=== PATIENT | male | born 1940 | race Caucasian/White ===

== ENCOUNTER 2016-12-24 15:09 | Observation (INO) | payer MEDICARE, BC ==
[~2016-12-24] VITALS: Ht 182.9 cm; Wt 83.6 kg
[2016-12-24] MEDS ORDERED: SOD CHLORIDE 0.9% 1,000 ML IV STA (15:34)
[2016-12-24 15:45] LABS: ADD SCAN DIFF NO
[2016-12-24 15:47] LABS: BASOPHILS % 0.6 % (0.0-2.0); EOSINOPHILS # 0.3 10^3/ul (0.0-0.5); HEMATOCRIT 40.7 % (42.0-52.0); LYMPHOCYTES # 1.7 10^3/ul (0.8-2.9); LYMPHOCYTES % 23.7 % (15.0-51.0); MEAN CORPUSCULAR HEMOGLOBIN 28.3 pg (29.0-33.0); MEAN CORPUSCULAR HGB CONC 31.9 g/dl (32.0-37.0); MEAN CORPUSCULAR VOLUME 88.7 fl (82.0-101.0); MEAN PLATELET VOLUME 10.7 fl (7.4-10.4); MONOCYTE # 0.7 10^3/ul (0.3-0.9); MONOCYTES % 9.9 % (0.0-11.0); NEUTROPHIL # 4.3 10^3/ul (1.6-7.5); NEUTROPHILS % 61.7 % (39.0-77.0); PLATELET COUNT 175 10^3/UL (140-415); RED BLOOD COUNT 4.59 10^6/ul (4.70-6.10); RED CELL DISTRIBUTION WIDTH 13.9 % (11.5-14.5)
[2016-12-24 15:58] LABS: PROTIME 13.2 Sec (12.2-14.2)
[2016-12-24 15:59] LABS: PARTIAL THROMBOPLASTIN TIME 29.7 Sec (25.0-35.0)
[2016-12-24 16:02] LABS: ALBUMIN 4.2 g/dl (3.3-4.9)
[2016-12-24 16:03] LABS: CHLORIDE 107 mmol/L (97-110); SODIUM 144 mmol/L (135-144)
[2016-12-24 16:05] LABS: ANION GAP 15 (8-16); BILIRUBIN,INDIRECT 0.3 mg/dl (0-1.1); BILIRUBIN,TOTAL 0.3 mg/dl (0.2-1.3); CARBON DIOXIDE 26 mmol/L (21-31); CREATININE 1.25 mg/dl (0.61-1.24)
[2016-12-24 16:06] LABS: ALANINE AMINOTRANSFERASE 39 IU/L (13-69); ALKALINE PHOSPHATASE 136 IU/L (42-121); ASPARTATE AMINO TRANSFERASE 44 IU/L (15-46); BLOOD UREA NITROGEN 26 mg/dl (7-20); CALCIUM 9.9 mg/dl (8.4-10.2); CREATINE KINASE 356 IU/L (23-200); GLUCOSE 97 mg/dl (70-220); TOTAL PROTEIN 7.2 g/dl (6.1-8.1)
[2016-12-24 16:17] LABS: TROPONIN-I < 0.012 ng/ml (0.00-0.12)
--- NOTE | 2016-12-24 16:42 | RADRPT ---
PROCEDURE: CT Head without. CLINICAL INDICATION: Syncope, possible stroke. TECHNIQUE: The study was performed utilizing a multi-slice, multidetector CT scanner. Direct spira l 1 mm axial sections were obtained through the head without the use of intravenous contrast materia l. 1 or more of the following dose reduction techniques were utilized: Automated exposure control, adjustment of the mA and/or kV according to patient's size, iterative reconstruction technique. Co guerda and sagittal reformations were obtained. The images were reviewed on a PACS workstation. RADIATION DOSE: CTDIvol: 44.8 mGyDLP: 720.2 mGy-cm COMPARISON: No prior studies are available for comparison. FINDINGS: There is no intracranial hemorrhage, extra-axial fluid collection, mass lesion, midline shift or hyd rocephalus. There is mild prominence of the cerebral sulci, lateral and third ventricles. There ar e mild to moderate periventricular and subcortical white matter hypodensities, likely related to chr onic microangiopathic changes. There is a well-circumscribed area of encephalomalacia involving the lateral left frontal lobe/left frontal operculum consistent with remote prior infarct. There is as sociated moderate gliosis in the underlying white matter. There is ex vacuo enlargement of the fron naila horn of the left lateral ventricle. There is a wedge-shaped hypodensity involving the left occi pital lobe (axial series image 18), age indeterminate. The right cerebral hemisphere is unremarkabl e. The brainstem and cerebellum are normal in appearance. The basal cisterns are patent. The midl ine structures are intact. The orbits, calvarium and extracranial soft tissues are normal in appearance. The visualized paranasal sinuses, mastoid air cells and middle ear cavities are normally aerated. IMPRESSION: 1. Wedge-shaped hypodensity involving the left occipital lobe consistent with infarct, age indeterm inate. MRI may be helpful to evaluate for possible acute infarct. 2. Remote infarct involving the lateral left frontal lobe/left frontal operculum associated moderat e gliosis in the underlying white matter. 3. No intracranial hemorrhage, extra-axial fluid collection, mass lesion or hydrocephalous. The above findings were discussed with Patient's physician Kesha Hernandez by telephone on 12/24 4:41:52 PM. RPTAT: HGAS .Dakota Emanuel MD, MD Date Time Electronically viewed and signed by .Dakota Emanuel MD, MD on 12/24/2016 16:41 .S/
--- NOTE | 2016-12-24 16:46 | RADRPT ---
PROCEDURE: XR Chest. CLINICAL INDICATION: Possible stroke. TECHNIQUE: Portable AP upright view of the chest was obtained. COMPARISON: None available. FINDINGS: The cardiomediastinal silhouette is within normal limits. Left lower lobe infiltrate cannot exclude pneumonia versus atelectasis, the right lung is clear. Obscuring of the left hemidiaphragm cannot exclude a small pleural effusion. The right costophrenic angle is not included on the submitted exp osure. There is no evidence of pulmonary vascular congestion. No pneumothorax is seen. Degenerati ve spondylosis of the thoracic spine is identified without evidence of acute osseous abnormality. RPTAT:HJJR IMPRESSION: 1. Left lower lobe opacity unable to exclude pneumonia with parapneumonic effusion. Correlation wit h fever and cough is suggested. 2. Thoracic spondylosis. Physician Martha Date Time Electronically viewed and signed by Physician Martha on 12/24/2016 16:46 /
[2016-12-24 16:55] LABS: ADD UMIC YES; URINE BILIRUBIN (Dip) NEGATIVE (NEGATIVE); URINE BLOOD (Dip) NEGATIVE (NEGATIVE); URINE COLOR LT. YELLOW (YELLOW); URINE GLUCOSE (Dip) NEGATIVE (NEGATIVE); URINE KETONES (Dip) NEGATIVE (NEGATIVE); URINE LEUKOCYTE ESTERASE (Dip) TRACE (NEGATIVE); URINE NITRITE (Dip) NEGATIVE (NEGATIVE); URINE TOTAL PROTEIN (Dip) NEGATIVE (NEGATIVE); URINE UROBILINOGEN (Dip) 0.2 E.U./dL (0.1-1.0)
[2016-12-24] MEDS ORDERED: IOHEXOL 100 ML ONE (16:58)
[2016-12-24] MEDS ORDERED: SOD CHLORIDE 0.9% 100 ML ONE (16:58)
[2016-12-24 17:06] LABS: BACTERIA,URINE FEW; MUCUS,URINE FEW; URINE RBCS 0-2 /HPF (0)
[2016-12-24 17:22] LABS: BARBITURATES Negative (NEGATIVE); BENZODIAZEPINES Negative (NEGATIVE); CANNABINOIDS Negative (NEGATIVE); COCAINE Negative (NEGATIVE); OPIATES Negative (NEGATIVE)
[2016-12-24] MEDS ORDERED: ROSU40TA35 PO (17:41)
[2016-12-24] MEDS ORDERED: DUTA1CPM PO (17:42)
[2016-12-24] MEDS ORDERED: EZET10TA3 PO (17:42)
[2016-12-24] MEDS ORDERED: CLOP75TA27 PO (17:42)
[2016-12-24] MEDS ORDERED: AMIT100T2 PO (17:44)
[2016-12-24] MEDS ORDERED: ASPI325T32 PO (17:45)
[2016-12-24] MEDS ORDERED: GABA300C16 PO (17:45)
--- NOTE | 2016-12-24 17:55 | RADRPT ---
PROCEDURE: CTA head and neck CLINICAL INDICATION: 76-year-old male with left occipital lobe infarct of indeterminate age. Left frontal lobe and left frontal operculum encephalomalacia. TECHNIQUE: Thin section axial, coronal and sagittal images were performed through the neck and bra in following injection of 85 cc of Omnipaque 350. One or more of the following dose reduction techniques were used: - Automated exposure control. - Adjustment of the mA and/or kV according to patient size. Use of iterative reconstruction technique. Radiation dose: CTDI: 19.8 and DLP: 755 COMPARISON: CT scan of the brain without contrast 12/24/2016. FINDINGS: CTA NECK: There are metal clips in the aorticopulmonary window related to prior surgery. The aort ic arch is normal. Innominate artery, right and left subclavian arteries are normal. There is a dominant normal left vertebral artery. There is a nondominant right vertebral artery. There is a high-grade stenosis of the right vertebral artery at the level of the right C3-4 foramen transversarium. The right common carotid artery is normal. The internal and external branches of the cervical porti on of the right common carotid artery are normal. There are vascular calcifications in the left carotid bulb. Remaining portions of the left common c arotid artery are normal. CT angio brain: The basilar artery, posterior inferior cerebellar arteries, anterior inferior cerebellar arteries an d superior cerebellar arteries are unremarkable. There is mild narrowing of the proximal portion of the left posterior cerebral artery. The right posterior cerebral artery is unremarkable. The basilar artery is patent and unremarkable. No aneurysm or AV malformations identified. The cavernous and supracavernous portions of the internal carotid arteries are patent. The anterior communicating artery and anterior cerebral arteries are patent. There is diminished blood flow into the M2 branches of the left middle cerebral artery with areas of occlusion and stenosis. There is encephalomalacia of the left frontal lobe and left frontal opercu la secondary to an old infarct. The in M1 and M2 branches of the right middle cerebral artery are normal. The 4 branches of the right and left middle cerebral arteries are normal. There is an old watershed zone infarct between the distributions of the right posterior cerebral and right middle cerebral arteries. There is an old watershed zone infarct with encephalomalacia of between distributions of the left mi ddle and left posterior cerebral arteries. An MRI with diffusion weighted imaging can be performed t o search for acute ischemic changes which might not be detected on this exam. The dural sinuses are patent and unremarkable. IMPRESSION: 1. High-grade stenosis right vertebral artery stenosis at C3-4 in the right foramen transversarium. 2. Segmental stenoses and occlusion of several of the M2 branches of the left middle cerebral arter y with encephalomalacia involving the left frontal lobe and left frontal opercula. 3. There are bilateral areas of encephalomalacia in the watershed zone areas between the right and left middle and posterior cerebral arteries. An MRI with diffusion weighted imaging can be performe d to search for superimposed acute ischemic changes, if clinically indicated as this contrast enhanc ed CT would be less sensitive in the detection of acute changes superimposed on chronic findings. 4. No evidence to suggest acute vascular thrombosis. No evidence of an aneurysm or intracranial vasc ular malformation. 5. Atherosclerotic vascular disease involving the proximal portion of the left internal carotid art jb. 6. Atherosclerotic vascular disease involving the proximal portion of the right internal carotid ar inder. 7. No evidence to suggest a hemodynamically significant stenosis in the common carotid arteries wer e right or left internal carotid arteries. Findings were phoned to Dr. Rich. Physician Keegan Date Time Electronically viewed and signed by Physician Keegan on 12/24/2016 17:55 SRINIVAS/
[2016-12-24] MEDS ORDERED: ACETAMINOPHEN 325 MG TAB PO PRN ×2 (18:00→19:30)
[2016-12-24] MEDS ORDERED: ONDANSETRON 4 MG INJ IV PRN ×2 (18:00→19:30)
--- NOTE | 2016-12-24 19:20 | RADRPT ---
PROCEDURE: MRI Brain without contrast. CLINICAL INDICATION: Blurry vision. Occipital stroke. TECHNIQUE: MRI of the brain was performed with the following sequences obtained: Sagittal, coronal and axial T1-weighted, axial T2-weighted, axial FLAIR, axial diffusion weighted (with ADC map), and coronal GRE. COMPARISON: CT angiogram and head 12/24/2016 FINDINGS: Tiny punctate focus of restricted diffusion involving the cortex and subcortical white matter as wel l as centrum semiovale of the superior gyrus right parasagittal frontal lobe near the convexity (ser ies 3 images 19 - 21). Findings are consistent with an acute ischemic lacunar type infarct. No add itional areas of restricted diffusion are demonstrated to suggest other areas of acute infarct. No hemorrhage, mass effect or mass lesion is present. The extraaxial spaces are clear of collections. Areas of hemosiderin deposition related to the encephalomalacia of the left frontal operculum are p resent with gliosis of the adjacent the left frontal lobe white matter, findings consistent with rem ote infarct in the anterior division left middle cerebral artery territory. Subtle area of encephal omalacia and gliosis involving the superior left occipital lobe is present without acute ischemic in farct in this location. Prominence of the ventricular system and cerebral sulci is consistent with generalized atrophy appropriate for the patient's provided age of 76 years with mild scattered punct ate foci of hyperintense FLAIR signal in the subcortical and periventricular white matter is consist ent with chronic small vessel ischemic disease No signal alteration is present within the brainstem or cerebellum. The fourth ventricle is midline and the craniocervical junction lesion is intact. The area of the sella is normal. The bony calvarium and skull base are intact. The visualized paranasal sinuses and mastoid air cell s are clear. Physiologic flow voids within the internal carotid and vertebral arteries are maintain ed. RPTAT:HJJR IMPRESSION: 1. Tiny punctate area of restricted diffusion within the cortex, adjacent subcortical white matter and centrum semiovale of the superior gyrus, parasagittal right frontal lobe consistent with an acut e ischemic lacunar infarct. 2. Abnormality seen on CT within the left middle occipital gyrus is consistent with a chronic ische lui infarct with encephalomalacia and gliosis, no acute superimposed infarct is present. 3. Hemosiderin deposition, large area of encephalomalacia and associated adjacent gliosis in the le ft frontal operculum corresponds with the CT abnormality, findings superimposed upon generalized age -appropriate cerebral tissue loss. Quan Sifuentes Physician Date Time Electronically viewed and signed by Quan Sifuentes, Physician on 12/24/2016 19:20 JR/
[2016-12-24] MEDS ORDERED: HYDROCODONE/APAP (5/325) TAB PO PRN (19:30)
[2016-12-24] MEDS ORDERED: NACL 0.9% 3 ML SYG IV SCH (19:30)
[2016-12-24] MEDS ORDERED: morphine 2 MG INJ IV PRN (19:30)
[2016-12-24] MEDS ORDERED: ZOLPIDEM 5 MG TAB PO PRN (19:30)
--- NOTE | 2016-12-24 19:57 | RADRPT ---
PROCEDURE: Carotid ultrasound CLINICAL INDICATION: Stroke, carotid bruits TECHNIQUE: [place] scale, color doppler, spectral doppler ultrasound of the bilateral carotid and gloria tebral arteries. This study indirectly references the measurement of the distal ICA diameter as the denominator for s tenosis measurement. Validated velocity measurements with angiographic measurements, velocity criter ia are extrapolated from diameter data as defined by: *Cartoid artery stenosis: mendieta-scale and Doppl er US diagnosis. Society of Radiologists in Ultrasound Consensus Conference. Radiology 2003; 229: 34 0-346. U Consensus Conference Criteria for the Diagnosis of Carotid Artery Stenosis* Degree of Stenosis, % ICA PSV, cm/sec Plaque Estimate, % ICA/CCA PSV Ratio Normal <125 None <2.0 <50 <125 <50 <2.0 50 69 125-230 >50 2.0-4.0 >70 but less than near occlusion >230 >50 <4.0 Near occlusion High, low, or undetectable Visible Variable Total occlusion Undetectable Visible, no detectable lumen Not applicable COMPARISON: CT angiography of the extracranial circulation 12/24/2016 FINDINGS: Location Right CCA72 cm/sec Prox ICA 33 cm/sec Mid ICA45 cm/sec Dist ICA80 cm/sec ECA75 cm/sec ICA/CCA1.1 Left CCA71 cm/sec Prox ICA 46 cm/sec Mid ICA55 cm/sec Dist ICA68 cm/sec ECA69 cm/sec ICA/CCA1.0 Plaque burden: A small amount of plaque is present within the visualized portions of both internal c arotid arteries however there is no evidence of flow acceleration to suggest a hemodynamically signi ficant stenosis. Antegrade flow is seen within the vertebral arteries bilaterally. IMPRESSION: A small amount of plaque is present within the visualized portions of both internal carotid arteries however there is no evidence of flow acceleration to suggest a hemodynamically significant stenosis . RPTAT: AADD .Jaquan Laurent MD, MD Date Time Electronically viewed and signed by .Jaquan Laurent MD, on 12/24/2016 19:57 .B/
[2016-12-24 20:00] VITALS: Ht 182.9 cm; Wt 83.6 kg
[2016-12-24 20:03] VITALS: PULSE 66
[2016-12-24 20:10] VITALS: BP 155/79; RESP 16
--- NOTE | 2016-12-24 20:11 | HP ---
DATE OF ADMISSION: 12/24/2016 CHIEF COMPLAINT: Blurry vision. HISTORY OF PRESENT ILLNESS: The patient is a 76-year-old male with a history of strokes. The patie nt does have a history of occipital stroke with blurry vision which he states rendered him no altere d residual defects. The patient presents with blurry vision that began earlier today. He came to [facility] ER outside the TPA window. He was seen by teleneurologist. It was felt that he was not a candid ate for TPA. Of note, his symptoms did resolve, also contributing to why he did not receive TPA. José reid no longer complains of blurry vision. In the ED, brain CT showed occipital lobe infarct, age inde terminate, also more infarcts involving the lateral frontal lobe. The patient did have a head and n fern CTA that showed diffuse atherosclerosis, was read as high-grade stenosis in the vertebral artery . There was also segmental stenosis and occlusion of several of the branches of left MCA. There wa s significant diffuse atherosclerotic disease elsewhere as well. There was no evidence to suggest a ny significant stenosis of the common carotid arteries. The patient has no complaints at this time. He denies any familial hypercholesterolemia. He denies any significant smoking history but does s smith that he is on Atkins diet and has a significant amount of ivey and steak. The patient has no other complaints at this time. PAST MEDICAL HISTORY: Multiple CVAs in the past. AFib versus atrial flutter, status post ablation in the past. Chronic lower back pain. PAST SURGICAL HISTORY: Cardiac ablation and right shoulder surgery. HOME MEDICATIONS: Please see medication reconciliation. ALLERGIES: NO KNOWN DRUG ALLERGIES. FAMILY HISTORY: Denies. SOCIAL HISTORY: Denies any tobacco abuse, alcohol abuse or drug abuse. REVIEW OF SYSTEMS: A 12-point review of systems negative except for that in HPI. PHYSICAL EXAMINATION: VITAL SIGNS: Temperature is 97.8, pulse 64, respiratory rate 17, BP is 124/57, saturation 100% on r oom air. GENERAL: No acute distress. Alert, oriented. HEENT: Normocephalic, atraumatic. CHEST: Clear to auscultation. CARDIOVASCULAR: Regular rate and rhythm. ABDOMEN: Nondistended, nontender, soft. EXTREMITIES: No clubbing, cyanosis, edema. NEUROLOGIC: No focal deficits. LABORATORIES: White count 7.0, hemoglobin 13.0, platelets of 175. Chemistry within normal limits e xcept for creatinine 1.25, BUN is 26, creatinine kinase 356, alkaline phosphatase 136. INR is 1. U A is within normal limits except for trace leukocyte esterase. U-tox is negative. DIAGNOSTICS: Chest x-ray shows left lower lobe opacity, unable to exclude pneumonia, with parapneum onic effusion, thoracic spondylosis. Brain CT shows a wedge-shaped hypodensity involving left occip ital lobe consistent with infarct, age indeterminate. Remote infarct involving the lateral left fro ntal lobe. No acute hemorrhage. Head CTA shows diffuse atherosclerosis with high-grade stenosis in the right vertebral artery. ASSESSMENT AND PLAN: 1. Transient ischemic attack. The patient appears to have an occipital lobe TIA. He no longer has symptom he presented with, which was blurry vision. He does have a history of occipital infarct in the past, currently has no acute complaints. Will obtain a 2D echo, carotid ultrasound and will ge t a neurology consultation. Will continue his home aspirin, Plavix and statin. Etiology of his sig nificant atherosclerosis within the head and neck is likely secondary to him being on Atkins diet an d having a significant amount of animal fat. He has no familial hypercholesterolemia, and he is not a smoker nor does he does have a history of diabetes. The patient has been advised to get on a veg etarian diet. 2. History of atrial fibrillation/atrial flutter, status post ablation. The patient is currently i n sinus rhythm. 3. History of dyslipidemia. Continue statin. 4. History of cerebrovascular accident. Once again, continue aspirin, Plavix, statin. 5. Prophylaxis. Ambulation. Dictated By: MARIA R CATES MD BS/NTS Conf#: [id number] DID#: [id number]
[2016-12-24] MEDS ORDERED: ROSUVASTATIN CALCIUM 40 MG TABLET PO SCH (21:00)
[2016-12-24] MEDS ORDERED: AMITRIPTYLINE 50 MG TAB PO SCH (21:00)
[2016-12-24] MEDS ORDERED: GABAPENTIN 300 MG CAP PO SCH (21:00)
[2016-12-24] MEDS ORDERED: TAMSULOSIN (SR) 0.4 MG CAP PO SCH (22:00)
[2016-12-24] MEDS ORDERED: DUTASTERIDE 0.5 MG CAP PO SCH (22:00)
[2016-12-24] MEDS: ASPIRIN (EC) 325 MG TAB PO SCH (22:58)
[2016-12-24] MEDS: CLOPIDOGREL 75 MG TAB PO SCH (22:59)
[2016-12-25] VITALS (7 sets, daily range): BP systolic 132–136; BP diastolic 68–71; PULSE 58–65; RESP 16–18
[2016-12-25] MEDS ORDERED: EZETIMIBE 10 MG TAB PO SCH (09:00)
[2016-12-25] MEDS: ASPIRIN (EC) 325 MG TAB PO SCH (09:00)
[2016-12-25] MEDS ORDERED: DUTASTERIDE 0.5 MG CAP PO SCH (09:00)
[2016-12-25] MEDS ORDERED: CLOPIDOGREL 75 MG TAB PO SCH (09:00)
[2016-12-25] MEDS ORDERED: ASPIRIN (EC) 325 MG TAB PO SCH (09:00)
[2016-12-25] MEDS: CLOPIDOGREL 75 MG TAB PO SCH (09:00)
[2016-12-25] MEDS ORDERED: GABAPENTIN 300 MG CAP PO SCH ×3 (09:00→21:00)
[2016-12-25 10:45] LABS: ADD SCAN DIFF NO
[2016-12-25 10:57] LABS: BASOPHILS % 0.5 % (0.0-2.0); EOSINOPHILS # 0.2 10^3/ul (0.0-0.5); HEMOGLOBIN 12.3 g/dl (14.0-18.0); LYMPHOCYTES # 1.2 10^3/ul (0.8-2.9); MEAN CORPUSCULAR HEMOGLOBIN 27.8 pg (29.0-33.0); MEAN CORPUSCULAR HGB CONC 31.5 g/dl (32.0-37.0); MEAN CORPUSCULAR VOLUME 88.2 fl (82.0-101.0); MEAN PLATELET VOLUME 10.7 fl (7.4-10.4); MONOCYTE # 0.6 10^3/ul (0.3-0.9); MONOCYTES % 12.4 % (0.0-11.0); NEUTROPHIL # 2.4 10^3/ul (1.6-7.5); NEUTROPHILS % 54.9 % (39.0-77.0); PLATELET COUNT 150 10^3/UL (140-415); RED BLOOD COUNT 4.42 10^6/ul (4.70-6.10); RED CELL DISTRIBUTION WIDTH 13.7 % (11.5-14.5); WHITE BLOOD COUNT 4.4 10^3/ul (4.8-10.8)
[2016-12-25 11:06] LABS: ALBUMIN 3.6 g/dl (3.3-4.9)
[2016-12-25 11:07] LABS: POTASSIUM 4.3 mmol/L (3.5-5.1)
[2016-12-25 11:09] LABS: ALBUMIN/GLOBULIN RATIO 1.56; BILIRUBIN,INDIRECT 0.3 mg/dl (0-1.1); BILIRUBIN,TOTAL 0.3 mg/dl (0.2-1.3); CREATININE 1.01 mg/dl (0.61-1.24); TOTAL PROTEIN 5.9 g/dl (6.1-8.1)
[2016-12-25 11:10] LABS: CALCIUM 9.5 mg/dl (8.4-10.2); MAGNESIUM 2.3 mg/dl (1.7-2.5); PHOSPHORUS 2.6 mg/dl (2.5-4.9)
[2016-12-25 11:11] LABS: CHOL/HDL RATIO 1.7 RATIO
--- NOTE | 2016-12-25 11:16 | RADRPT ---
PROCEDURE: CTA head and neck CLINICAL INDICATION: 76-year-old male with left occipital lobe infarct of indeterminate age. Lef t frontal lobe and left frontal operculum encephalomalacia. TECHNIQUE: Thin section axial, coronal and sagittal images were performed through the neck and brain following injection of 85 cc of Omnipaque 350. One or more of the following dose reduction techniques were used: - Automated exposure control. - Adjustment of the mA and/or kV according to patient size. Use of iterative reconstruction technique. Radiation dose: CTDI: 19.8 and DLP: 755 COMPARISON: CT scan of the brain without contrast 12/24/2016. FINDINGS: CTA NECK: There are metal clips in the aorticopulmonary window related to prior surgery. The aortic arch is normal. Innominate artery, right and left subclavian arteries are normal. There is a dominant normal left vertebral artery. There is a nondominant right vertebral artery. There is a high-grade stenosis of the rightvertebral artery at the level of the right C3-4 foramen transversarium. The right common carotid artery is normal. The internal and external branches of the cervicalportio n of the right common carotid artery are normal. There are vascular calcifications in the left carotid bulb. Remaining portions of the left commonca rotid artery are normal. CT angio brain: The basilar artery, posterior inferior cerebellar arteries, anterior inferior cerebellar arteriesand superior cerebellar arteries are unremarkable. There is mild narrowing of the proximal portionof th e left posterior cerebral artery. The right posterior cerebral artery is unremarkable. The basilar artery is patent and unremarkable. No aneurysm or AV malformations identified. The cav ernous and supracavernous portions of the internal carotid arteries are patent. The anterior communicating artery and anterior cerebral arteries are patent. There is diminished blood flow into the M2 branches of the left middle cerebral artery with areasof occlusion and stenosis. There is encephalomalacia of the left frontal lobe and left frontalopercula secondary to an old infarct. The in M1 and M2 branches of the right middle cerebral artery are normal. The M4 branches of the right and left middle cerebral arteries are normal. There is an old watershed zone infarct between the distributions of the right posterior cerebraland right middle cerebral arteries. There is an old watershed zone infarct with encephalomalacia of between distributions of the leftmid dle and left posterior cerebral arteries. An MRI with diffusion weighted imaging can beperformed to search for acute ischemic changes which might not be detected on this exam. The dural sinuses are patent and unremarkable. IMPRESSION: 1. High-grade stenosis right vertebral artery stenosis at C3-4 in the right foramen transversarium. 2. Segmental stenoses and occlusion of several of the M2 branches of the left middle cerebralartery with encephalomalacia involving the left frontal lobe and left frontal opercula. 3. There are bilateral areas of encephalomalacia in the watershed zone areas between the rightand l eft middle and posterior cerebral arteries. An MRI with diffusion weighted imaging can beperformed to search for superimposed acute ischemic changes, if clinically indicated as thiscontrast enhanced CT would be less sensitive in the detection of acute changes superimposed onchronic findings. 4. No evidence to suggest acute vascular thrombosis. No evidence of an aneurysm or intracranialvascu lar malformation. 5. Atherosclerotic vascular disease involving the proximal portion of the left internal carotidarte ry. 6. Atherosclerotic vascular disease involving the proximal portion of the right internal carotid ar inder. 7. No evidence to suggest a hemodynamically significant stenosis in the common carotid arterieswere right or left internal carotid arteries. Findings were phoned to Dr. Rich. Physician Keegan Date Time Electronically viewed and signed by Physician Keegan on 12/25/2016 11:16 SRINIVAS/
--- NOTE | 2016-12-25 11:18 | PDOCDIS ---
Discharge Instructions CONDITION Patient Condition: Good HOME CARE INSTRUCTIONS: Special Diet: low fat low cholesterol ACTIVITY: Activity Restrictions: No Restrictions FOLLOW UP/APPOINTMENTS Appointments F/U WITH YOUR PCP IN 1-2 WEEKS MARIA R CATES Dec 25, 2016 11:18
[2016-12-25 11:26] LABS: T3 UPTAKE 36.6 % (23.5-40.5)
--- NOTE | 2016-12-25 14:40 | DS ---
DATE OF ADMISSION: 12/24/2016 DATE OF DISCHARGE: 12/25/2016 DISCHARGE DIAGNOSES: 1. Transient ischemic attack with visual changes, now resolved. 2. History of atrial fibrillation, atrial flutter status post ablation in the past, stable. 3. History of dyslipidemia. Continue statin. 4. History of cerebrovascular accident with atherosclerosis throughout the arteries within the brai n. Carotid ultrasound shows no occlusion in the carotids. The patient is to continue statin, aspir in, Plavix and has also been advised to change his diet to include more vegetables. The patient eat s a significant amount of meat and has been advised to decrease his meat intake. 5. Acute lacunar infarct. The patient is now asymptomatic. Continue aspirin, Plavix, statin. HOSPITAL COURSE: The patient is a 76-year-old male with a history of multiple small strokes. The p atient does have a history of occipital stroke with blurry vision in the past and he is on aspirin a nd Plavix as well as statins. He does have a history of atrial fibrillation status post ablation. 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 It resolved. He was not felt to be a candidate for TPA per telemetry neurologist, who evaluated him in the ER. The patient did have a brain CT that showed a possible left occipital lobe infarct, but MRI done later showed that there is no acute infarct in the occipital lobe and what was seen on CT was a chronic infarct. Patient d id have an acute ischemic lacunar infarct within the superior gyrus in the sagittal right frontal lo be. It is unclear if this acute lacunar infarct was what caused his symptoms or blurry vision or if this was a TIA within the occipital lobe. Nonetheless, the patient was asymptomatic. He did have a carotid ultrasound that showed a small amount of plaque present, but no evidence of hemodynamical ly significant stenosis. The case was reviewed by vascular surgery, and it is felt that he does not need any surgical intervention at this time. Of note, patient did have had a head and neck CTA carlie t did show significant amount of atherosclerosis throughout his upper neck and cerebral vessels, non e of which required surgical intervention. His degree of atherosclerosis was felt secondary to his poor diet. The patient eats a significant amount of animal fat and does not eat vegetables. He is on an Atkins diet. He is advised to decrease his meat intake and to eat more vegetables and fruit. The patient understood. The patient was felt to be stable for discharge. On the day of discharg e, patient's vitals, labs, physical exam were stable. He had no acute complaints and questions were answered. CONDITION ON DISCHARGE: Stable. DISPOSITION: To home. MEDICATIONS: The patient is to continue his usual home medications. No new medications were prescr ibed. FOLLOWUP: The patient is to follow up with his PCP in 1 to 2 weeks. Greater than 30 minutes was spent coordinating discharge of patient. Dictated By: MARIA R CATES MD BS/NTS Conf#: [id number] DID#: [id number]
--- NOTE | 2016-12-25 14:51 | RADRPT ---
Echocardiogram Report Patient Name: LEONARD MADERA Gender: Male Date: 1940 Study Date: 25-Dec-2016 Decorating Consultant: Spring Frias [facility] Location: [address] Ref. Physician: MARIA R CATES Quality: Technically Difficult Study Procedures: Transthoracic echocardiogram with complete 2D, M-Mode, and doppler examination. Indications: Cerebrovascular Accident. 2D/M Mode Doppler Measurement Value Normal Ranges Measurement Value Normal Ranges LVIDd 2D 5.5 3.5 - 5.6 cm AV Peak Ramiro 1.3 m/sec LVIDs 2D 3.6 2.1 - 4.1 cm AV Peak PG 6.3 mmHg LVPWd 2D 0.8 0.6 - 1.1 cm AI Peak PG 33.5 mmHg IVSd 2D 0.9 0.6 - 1.1 cm AI Peak Ramiro 2.9 m/sec AoR Diam 2D 2.5 2.0 - 3.7 cm AI PHT 651.2 msec EDV 2D 150.1 cm3 LVOT Peak Ramiro 1.0 m/sec ESV 2D 47.7 cm3 LVOT Peak PG 3.7 mmHg LA Dimen 2D 3.6 2.3 - 4.0 cm MV E Peak Ramiro 1.1 m/sec MV A Peak Ramiro 0.3 m/sec MV E/A 3.9 MV Decel Time 156 msec MV Decel Pratt 7 MV E/A 3.9 TR Peak Ramiro 2.7 m/sec TR Peak PG 29.8 mmHg RVSP 33.0 mmHg Findings Left Ventricle: Normal left ventricular systolic function. Normal left ventricular cavity size. Normal left ventricular wall thickness. Ejection fraction is visually estimated at 5560 %. Right Ventricle: Normal right ventricular size. Normal right ventricular systolic function. Left Atrium: The left atrium is normal in size. Right Atrium: The right atrium is normal in size. Mitral Valve: Mitral valve leaflets appear mildly thickened. Mild mitral annular calcification. Mild to moderate mitral valve regurgitation. Aortic Valve: Aortic cusps appear moderately calcified. Mild aortic valve regurgitation. Tricuspid Valve: Normal appearance of the tricuspid valve. Estimated peak PA systolic pressure 33 mmHg. There is mild tricuspid regurgitation. Pulmonic Valve: There is mild pulmonic regurgitation. Pericardium: Normal pericardium with no significant pericardial effusion. Aorta: Normal aortic root. IVC: Normal size and normal respiratory collapse consistent with normal right atrial pressure. Conclusions 1.The left ventricle is normal in size and systolic function. 2.Estimated left ventricular ejection fraction of 55-60%. 3.Mild to moderate mitral regurgitation. Electronically Signed By: Odin Sharif 25-Dec-2016 14:50:23 -0700 Patient Name: LEONARD MADERA Study Date: 25-Dec-2016 [id number]
--- NOTE | 2017-01-17 01:46 | ERA ---
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 He was with his son on the roof working since 8am, when he suddenly felt his vision become blurry around 1420. He states he had double vision, but this has no improved. Per his son, there was a few minutes where the patient stopped talking and had snoring respirations. Currently patient has no complaints of headache, vision disturbance, dizziness, focal weakness or numbness. He denies chest pain or shortness of breath. ROS All systems reviewed and are negative except as per history of present illness. Medications Home Meds Reported Medications Aspirin* (Aspirin* EC) 325 Mg Tab, 325 MG PO DAILY, TAB 12/24/16 Gabapentin* (Gabapentin*) 300 Mg Capsule, 300 MG PO TID, #90 CAP 12/24/16 Amitriptyline Hcl* (Amitriptyline Hcl*) 100 Mg Tablet, 100 MG PO QHS, #30 TAB 12/24/16 Ezetimibe* (Zetia*) 10 Mg Tablet, 10 MG PO DAILY, TAB 12/24/16 Clopidogrel Bisulfate (Clopidogrel) 75 Mg Tablet, 75 MG PO DAILY, #30 TAB 12/24/16 Dutasteride-Tamsulosin Hcl (Lary) 0.5-0.4 Mg Capsule, 1 CAP PO DAILY, CAP 12/24/16 Rosuvastatin Calcium* (Crestor*) 40 Mg Tablet, 40 MG PO QHS, #30 TAB 12/24/16 Allergies Allergies: Coded Allergies: No Known Allergy (Unverified , 12/24/16) PMhx/Soc History of Surgery: Yes (CATARACT SURGERY,ABLATION) Anesthesia Reaction: No Hx Neurological Disorder: No Hx Respiratory Disorders: Yes (SLEEP APNEA) Hx Cardiac Disorders: Yes (HX OF AFIB/ABLATION s/p ablation) Hx Psychiatric Problems: No Hx Miscellaneous Medical Probl: Yes (previous stroke, chronic back pain, R shoulder sx,s/p ablation) Hx Alcohol Use: No (OCCASSIONAL /WINE 1 GLASS/DAY) Hx Substance Use: No Hx Tobacco Use: No Smoking Status: Former smoker FmHx Family History: No diabetes Physical Exam Physical Exam Const: well appearing, nontoxic, nondiaphoretic, no distress Head: Atraumatic Eyes: Normal Conjunctiva, PERRLA, EOMI, no nystagmus, no diplopia ENT: Normal External Ears, Nose and Mouth. Neck: Full range of motion. No JVD. No meningismus. Resp: Clear to auscultation bilaterally Cardio: Regular rate and rhythm, no murmurs Abd: Soft, non tender, non distended. Normal bowel sounds Skin: No petechiae or rashes Back: No midline or flank tenderness Ext: No cyanosis, or edema Neur: Awake and alert and oriented x 3, normal speech, er medical technician intact, no pronator drift, strength and sensations intact in all 4 extremities, normal cerebellar exam, normal gait and balance Psych: Normal Mood and Affect Results 24 hrs Laboratory Tests Test 12/24/16 15:27 12/24/16 15:34 12/24/16 16:30 White Blood Count 7.010^3/ul Red Blood Count 4.5910^6/ul Hemoglobin 13.0g/dl Hematocrit 40.7% Mean Corpuscular Volume 88.7fl Mean Corpuscular Hemoglobin 28.3pg Mean Corpuscular Hemoglobin Concent 31.9g/dl Red Cell Distribution Width 13.9% Platelet Count 32704^3/UL Mean Platelet Volume 10.7fl Neutrophils % 61.7% Lymphocytes % 23.7% Monocytes % 9.9% Eosinophils % 4.0% Basophils % 0.6% Nucleated Red Blood Cells % 0.0/100WBC Neutrophils # 4.310^3/ul Lymphocytes # 1.710^3/ul Monocytes # 0.710^3/ul Eosinophils # 0.310^3/ul Basophils # 0.010^3/ul Nucleated Red Blood Cells # 0.010^3/ul Prothrombin Time 13.2Sec Prothrombin Time Ratio 1.0 INR International Normalized Ratio 1.00 Activated Partial Thromboplast Time 29.7Sec Sodium Level 144mmol/L Potassium Level 4.0mmol/L Chloride Level 107mmol/L Carbon Dioxide Level 26mmol/L Anion Gap 15 Blood Urea Nitrogen 26mg/dl Creatinine 1.25mg/dl Glucose Level 97mg/dl Calcium Level 9.9mg/dl Total Bilirubin 0.3mg/dl Direct Bilirubin 0.00mg/dl Indirect Bilirubin 0.3mg/dl Aspartate Amino Transf (AST/SGOT) 44IU/L Alanine Aminotransferase (ALT/SGPT) 39IU/L Alkaline Phosphatase 136IU/L Creatine Kinase 356IU/L Creatinine Kinase MB (Mass) 3.90ng/ml Troponin I < 0.012ng/ml Total Protein 7.2g/dl Albumin 4.2g/dl Globulin 3.00g/dl Albumin/Globulin Ratio 1.40 Bedside Glucose 94mg/dL Urine Color LT. YELLOW Urine Clarity CLEAR Urine pH 5.5 Urine Specific [place] 1.025 Urine Ketones NEGATIVE Urine Nitrite NEGATIVE Urine Bilirubin NEGATIVE Urine Urobilinogen 0.2 E.U./dL Urine Leukocyte Esterase TRACE Urine Microscopic RBC 0-2/HPF Urine Microscopic WBC 5-10/HPF Urine Bacteria FEW Urine Mucus FEW Urine Hemoglobin NEGATIVE Urine Glucose NEGATIVE% Urine Total Protein NEGATIVE Urine Opiates Screen Negative Urine Barbiturates Negative Urine Amphetamines Screen Negative Urine Benzodiazepines Screen Negative Urine Cocaine Screen Negative Urine Cannabinoids Negative Current Medications Medications (Trade) Dose Ordered Sig/Greg Route PRN Reason Start Time Stop Time Status Last Admin Dose Admin Sodium Chloride (NS) 1,000 ml @ 1,000 mls/hr Q1H STAT IV 12/24/16 15:34 12/24/16 16:33 DC 12/24/16 16:07 IV Flush 10 ml 10 ml STK-MED ONCE .ROUTE 12/24/16 16:58 12/24/16 16:59 DC 12/24/16 17:17 Sodium Chloride 100 ml @ ud STK-MED ONCE .ROUTE 12/24/16 16:58 12/24/16 16:59 DC 12/24/16 17:17 Iohexol (Omnipaque) 100 ml @ ud STK-MED ONCE .ROUTE 12/24/16 16:58 12/24/16 16:59 DC 12/24/16 17:17 Procedures/MDM ED Course: Patient arrived to the ER with resolution of his symptoms. I spoke with the teleneurologist, Dr. Fernandes at 16:45 regarding the patient's case. He was seen by teleneurology and deemed to not be a candidate for TPA. Brain CT showed occipital lobe infarct, age indeterminate, also more infarcts involving the lateral frontal lobe. 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 There was also segmental stenosis and occlusion of several of the branches of left MCA. There was significant diffuse atherosclerotic disease elsewhere as well. There was no evidence to suggest any significant stenosis of the common carotid arteries. Labs showed elevated BUN and creatinine and elevated CK and CKMB. Troponin was normal. All other labs were reviewed and are unremarkable. Chest Xray showed a left lower lobe opacity, but exam is not consistent with an acute pulmonary process, specifically not consistent with pneumonia or PE. EKG: Normal sinus rhythm at 71 bpm Incomplete RBBB No acute ischemia, arrhythmia, or STEMI MDM: Patient's presentation is consistent with a TIA. Vitals are stable. His SBP was noted to be above 120, however I do not suspect hypertensive emergency. Other diagnoses considered were ICH, intracranial mass, ACS, carotid or vertebral dissection, shock, but clinical picture not consistent with these. MRI of the brain was ordered. Patient and son were updated on the results and plan. Patient will be admitted for frequent neuro checks and further stroke workup and management. Critical Care Time: 35 minutes Treatments/Evaluations: Close monitoring and treatment of unstable vital signs, cardiorespiratory, and neurologic status, while maintaining tight balance of fluid, respiratory, and cardiac interventions. This time includes discussing the case with the patient and the patients family. This time does not include all procedures stated elsewhere in this record. This time also includes reviewing old records, labs and radiological studies. This time includes examining and re-examining the patient. Additionally, this time also includes arranging care with admitting and consulting physicians. Departure Diagnosis: Primary Impression: TIA (transient ischemic attack) Qualified Code: G45.9 - Transient cerebral ischemia, unspecified type Additional Impressions: Elevated BUN Elevated serum creatinine Condition: Serious Patient Instructions: Transient Ischemic Attack (TIA) BRIAN PINEDA MD Jan 17, 2017 01:36
== END 2016-12-25 11:50 | disposition home or self-care (01) ==
LOC: E/R 15:09 → TEL 17:32
PROVIDERS: ADMIT Internal Medicine; ATTEND Internal Medicine
DX: G45.9 Transient cerebral ischemic attack, unspecified (principal); I48.91 Unspecified atrial fibrillation; I48.92 Unspecified atrial flutter; E78.5 Hyperlipidemia, unspecified; Z79.82 Long term (current) use of aspirin; Z79.02 Long term (current) use of antithrombotics/antiplatelets
CPT/HCPCS: 70450; 70496; 70498; 70551; 71010; 80053; 80061; 80307; 81001; 82550; 82553; 82962; 83036; 83735; 84100; 84436; 84479; 84484; 85025; 85610; 85730; 93005; 93306; 93880; G0378; J7030; Q9967; 81003